=== PATIENT | male | born 1970 | race Hispanic/Latino ===

== ENCOUNTER 2025-03-27 20:24 | Emergency (ER) | payer SELFPAY ==
[2025-03-27 20:33] VITALS: BP 143/80; PULSE 60; RESP 14; TEMP 36.7; O2SAT 100; BMI 32.4
--- NOTE | 2025-03-27 20:37 | EKG_ITS ---
[facility]
--- NOTE | 2025-03-27 20:41 | DI.RAD.S_ITS ---
PROCEDURE: XR CHEST 1V
[2025-03-27] MEDS: ASPIRIN 81 MG CHEW TAB 324 MG PO (20:55)
[2025-03-27 21:09] LABS: INR 1.0 (0.9-1.3); Prothrombin Time 11.4 SECONDS (9.4-12.5)
[2025-03-27 21:11] LABS: PTT Partial Thromboplastin Tim 33 SECONDS (25.1-36.5)
[2025-03-27 21:14] LABS: Add Manual Diff / Slide Review NO; Hematocrit 44.8 % (41-53); Hemoglobin 15.0 g/dL (13.5-17.5); Lymphocytes Absolute Auto 2500 /uL (1100-4500); Mean Corpuscular HGB Conc 33.5 % (30-36); Mean Corpuscular Hemoglobin 27.2 PG (26-34); Mean Corpuscular Volume 81.0 fL (80-100); Platelet Count 346 X10^3/uL (150-400)
[2025-03-27 22:06] LABS: Alanine Aminotransferase 36 IU/L (<50); Albumin 4.5 g/dL (3.5-5.0); Albumin Globulin Ratio 1.2 (1.0-2.8); Alkaline Phosphatase 67 U/L (38-126); Blood Urea Nitrogen 16 mg/dL (9-20); Calcium 9.1 mg/dL (8.4-10.2); Carbon Dioxide 21 mmol/L (22-32); Chloride 104 mmol/L (98-107); Creatine Kinase 224 U/L (55-170); Estimated Glomerular Filt Rate > 60 mL/min (>60); Globulin 3.7 g/dL (1.7-4.1); Glucose 104 mg/dL (70-99); HEMOLYSIS < 15 (0-50); Lipase 26 U/L (23-300); Magnesium 2.2 mg/dL (1.6-2.3); Potassium 3.9 mmol/L (3.4-5.1); Sodium 135 mmol/L (137-145); Total Protein 8.2 g/dL (6.3-8.2)
[2025-03-27 22:17] LABS: NT-proBNP (BNP-Adult 18+) < 20 pg/mL (<125); Troponin I < 0.012 ng/mL (0.01-0.034)
[2025-03-27 22:37] VITALS: PULSE 62; RESP 12; O2SAT 97
[2025-03-27 23:00] VITALS: BP 135/87; PULSE 59; RESP 15; O2SAT 95
[2025-03-27 23:30] VITALS: BP 143/90; PULSE 60; RESP 14; O2SAT 98
--- NOTE | 2025-03-27 23:37 | ED_ITS ---
HPI - Chest Pain
--- NOTE | 2025-03-27 23:37 | ED.CHESTPAIN ---
HPI - Chest Pain General Chief Complaint: Chest Pain Stated Complaint: chest pain, pain in lt arm, lips tingling Time Seen by Provider: 03/27/25 23:37 Source: patient and family Mode of arrival: Ambulatory Limitations: no limitations History of Present Illness HPI narrative: 54-year-old male no pertinent past medical history comes into the ED from home for evaluation of multiple complaints. Patient states that he has been having headache facial pain ongoing persistent for the past 3 days, also has been complaining of left chest pain radiation is left arm. Does endorse some nausea with this but denies any shortness of breath denies any other symptoms such as visual disturbance vomiting abdominal pain or any other GI/ symptoms at this time. Review of Systems Review of Systems Narrative: General: Denies fever, chills, weight loss HEENT: Positive headache, denies eye drainage, eye irritation, head trauma, sore throat, voice change Cardiovascular: Positive chest pain, denies palpitations, tachycardia Respiratory: Denies any shortness of breath, cough, wheeze, stridor GI/: Denies any abdominal pain, nausea, vomiting, diarrhea, bright red blood per rectum, melanotic stools, urinary frequency, urinary retention, dysuria, hematuria MSK: Denies any joint pain, muscle pains, swelling Skin: Denies any rashes, lesions, discoloration Neuro: Denies any headache, lightheadedness, dizziness, fainting, weakness Psych: Denies SI/HI Patient History Smoking Status: Former smoker Exam Narrative Exam Narrative: General: Cooperative, well-developed, not in acute distress HEENT: Normocephalic, atraumatic, PERRLA, normal sclera, eyelids normal Neck: Active full range of motion, atraumatic Chest: Normal to inspection, negative crepitus, no overlying erythema ecchymosis Respiratory: Normal respiratory effort, not in acute respiratory distress, clear to auscultation bilaterally negative cough, wheeze, tachypnea, rhonchi, rales Cardiology: Regular rate rhythm negative gallop, murmur, rubs GI/: No tenderness to palpation, soft, non rigid, normal to inspection, exam deferred MSK: Full active range of motion in all 4 extremities, atraumatic, no tenderness to palpation of any bony prominences Skin: No rashes or lesions noted Neuro: Alert awake oriented x3, moves all 4 extremities spontaneously, cranial nerves intact, able to answer all questions appropriately follows commands appropriately Psych: Cooperative, negative suicidal or homicidal ideations Initial Vital Signs Initial Vital Signs: Vital Signs Temperature 98.0 F 03/27/25 20:33 Pulse Rate 60 03/27/25 20:33 Respiratory Rate 14 03/27/25 20:33 Blood Pressure 143/80 H 03/27/25 20:33 Pulse Oximetry 100 03/27/25 20:33 Oxygen Delivery Method Room Air 03/27/25 20:33 Course Orders Ordered: ED Orders 03/27/25 20:31 EKG-12 Lead Stat 03/27/25 20:41 XR chest 1V Stat 03/27/25 20:48 Complete Blood Count AUTO DIFF Stat PTT Partial Thromboplastin Kelvin Stat Prothrombin Time INR Stat 03/27/25 21:40 Comprehensive Metabolic Panel Stat Lipase Stat Magnesium Stat NT-proBNP (BNP-Adult 18+) Stat Troponin & CK Cardiac Panel Stat 03/27/25 23:45 Trop I [Troponin I] Stat 03/27/25 23:54 Covid-19 + FLU A/B + RSV - PCR Stat Discontinued Medications Aspirin (Aspirin 81 Mg Chew Tab) 324 mg PO NOW ONE Stop: 03/27/25 20:41 Last Admin: 03/27/25 20:55 Dose: 324 mg Documented By: AB Vital Signs Vital signs: Vital Signs - 8 hr 03/27/25 20:33 Temperature 98.0 F Pulse Rate 60 Respiratory Rate 14 Blood Pressure 143/80 H Pulse Oximetry 100 Oxygen Delivery Method Room Air MDM - Chest Pain Lab Data 03/27/25 20:48 03/27/25 21:40 Labs: Lab Results 03/27/25 03/27/25 03/27/25 Range/Units 20:48 21:40 23:49 WBC 8.6 (4.5-11.0) X10^3/uL RBC 5.53 (4.5-5.9) X10^6/uL Hgb 15.0 (13.5-17.5) g/dL Hct 44.8 (41-53) % MCV 81.0 (80-100) fL MCH 27.2 (26-34) PG MCHC 33.5 (30-36) % RDW 14.1 (11.6-14.8) % Plt Count 346 (150-400) X10^3/uL Neut % (Auto) 63.7 (50-75) % Lymph % (Auto) 29.4 (25-40) % Major % (Auto) 5.2 (3-14) % Eos % (Auto) 0.6 L (2-4) % Baso % (Auto) 1.1 (0-2) % Neut # (Auto) 5500 (4900-3969) /uL Lymph # (Auto) 2500 (4274-8220) /uL Major # (Auto) 400 (0-900) /uL Eos # (Auto) 100 (0-450) /uL Baso # (Auto) 100 (0-100) /uL PT 11.4 (9.4-12.5) SECONDS INR 1.0 (0.9-1.3) APTT 33 (25.1-36.5) SECONDS Sodium 135 L (137-145) mmol/L Potassium 3.9 (3.4-5.1) mmol/L Chloride 104 (98-107) mmol/L Carbon Dioxide 21 L (22-32) mmol/L BUN 16 (9-20) mg/dL Creatinine 0.82 (0.66-1.25) mg/dL Estimated GFR > 60 (>60) mL/min BUN/Creatinine Ratio 19.5 (6-22) Glucose 104 H (70-99) mg/dL Calcium 9.1 (8.4-10.2) mg/dL Magnesium 2.2 (1.6-2.3) mg/dL Total Bilirubin 0.5 (0.2-1.3) mg/dL AST 40 (17-59) IU/L ALT 36 (<50) IU/L Alkaline Phosphatase 67 (38-126) U/L Total Creatine Kinase 224 H (55-170) U/L Troponin I < 0.012 < 0.012 (0.01-0.034) ng/mL NT-Pro-B Natriuret Pep < 20 (<125) pg/mL Total Protein 8.2 (6.3-8.2) g/dL Albumin 4.5 (3.5-5.0) g/dL Globulin 3.7 (1.7-4.1) g/dL Albumin/Globulin Ratio 1.2 (1.0-2.8) Lipase 26 (23-300) U/L SARS-CoV-2 (PCR) (Negative) Influenza A (RT-PCR) (NEGATIVE) Influenza B (RT-PCR) (NEGATIVE) RSV (PCR) (Negative) 03/27/25 Range/Units 23:54 WBC (4.5-11.0) X10^3/uL RBC (4.5-5.9) X10^6/uL Hgb (13.5-17.5) g/dL Hct (41-53) % MCV (80-100) fL MCH (26-34) PG MCHC (30-36) % RDW (11.6-14.8) % Plt Count (150-400) X10^3/uL Neut % (Auto) (50-75) % Lymph % (Auto) (25-40) % Major % (Auto) (3-14) % Eos % (Auto) (2-4) % Baso % (Auto) (0-2) % Neut # (Auto) (5710-6645) /uL Lymph # (Auto) (0590-9637) /uL Major # (Auto) (0-900) /uL Eos # (Auto) (0-450) /uL Baso # (Auto) (0-100) /uL PT (9.4-12.5) SECONDS INR (0.9-1.3) APTT (25.1-36.5) SECONDS Sodium (137-145) mmol/L Potassium (3.4-5.1) mmol/L Chloride (98-107) mmol/L Carbon Dioxide (22-32) mmol/L BUN (9-20) mg/dL Creatinine (0.66-1.25) mg/dL Estimated GFR (>60) mL/min BUN/Creatinine Ratio (6-22) Glucose (70-99) mg/dL Calcium (8.4-10.2) mg/dL Magnesium (1.6-2.3) mg/dL Total Bilirubin (0.2-1.3) mg/dL AST (17-59) IU/L ALT (<50) IU/L Alkaline Phosphatase (38-126) U/L Total Creatine Kinase (55-170) U/L Troponin I (0.01-0.034) ng/mL NT-Pro-B Natriuret Pep (<125) pg/mL Total Protein (6.3-8.2) g/dL Albumin (3.5-5.0) g/dL Globulin (1.7-4.1) g/dL Albumin/Globulin Ratio (1.0-2.8) Lipase (23-300) U/L SARS-CoV-2 (PCR) Negative (Negative) Influenza A (RT-PCR) Flu a negative (NEGATIVE) Influenza B (RT-PCR) Flu b negative (NEGATIVE) RSV (PCR) Negative (Negative) ECG Data Interpretation: EKG interpreted ED physician sinus 61 beats per minute QTC 390 QRS OH interval within normal limits, no STEMI MDM Narrative Medical decision making narrative: 54-year-old male without any pertinent past medical history coming into the ED from home for evaluation multiple complaints 3 days of headache facial pain ongoing persistent no visual disturbances now also complaining of left-sided chest pain with radiation to left arm. Does endorse some nausea but no vomiting denies any other symptoms at this time. EKG nonischemic in nature, chest x-ray without any acute cardiopulmonary abnormality, lab work unremarkable no leukocytosis creatinine normal electrolytes normal. Patient did receive full-dose aspirin, he states after taking this all of his symptoms resolved. Troponin negative x2 Patient's heart score of 0, viral panel negative. Patient will be discharged home with strict return precautions he verbalized understanding of this and agrees to being discharged home with outpatient follow up Discharge Plan Departure Patient Disposition: Home Clinical Impression: Chest pain Instructions: DI for Chest Pain Activity Restrictions/Additional Instructions: Please follow up with your primary care doctor and Cardiology in outpatient setting Please read the discharge instructions sheet carefully and bring all papers to all doctor follow-up visits, as it may contain information that your doctor may want to see. Disease processes change and evolve, if your symptoms worsen or if you develop any new symptoms that are concerning to you please return for evaluation. Your evaluation today does not show any evidence of any life-threatening/serious illnesses requiring admission to the hospital or surgery. Please follow-up with your doctor for re-evaluation in approximately 1 day. Seek immediate medical attention for any worrisome symptoms. *If you do not have a primary care provider please contact the [facility] Resource line at [phone]. They will ask some questions about your medical history and help get you set up with a doctor in the community. Referrals: Kb Patel MD [Physician, Cardiology] Stand Alone Forms: Patient Portal/API
[2025-03-28] VITALS: BP 145/76; PULSE 57; RESP 12; O2SAT 96
[2025-03-28 00:19] LABS: Troponin I < 0.012 ng/mL (0.01-0.034)
[2025-03-28 00:30] VITALS: BP 134/84; PULSE 58; RESP 11; O2SAT 96
[2025-03-28 00:35] LABS: Influenza A - CEPHEID Flu A NEGATIVE (NEGATIVE); Influenza B - CEPHEID Flu B NEGATIVE (NEGATIVE)
[2025-03-28 00:36] LABS: COVID-19 CEPHEID 4-PLEX PCR Negative (Negative)
== END 2025-03-28 00:59 | disposition home or self-care (01) ==
PROVIDERS: Emergency Provider Student in an Organized Health Care Education/Training Program
DX: R07.9 Chest pain, unspecified (principal); R51.9 Headache, unspecified
CPT/HCPCS: 36415; 71045; 80053; 82550; 83690; 83735; 83880; 84484; 85025; 85610; 85730; 87637; 93005; 99284